=== PATIENT | male | born 1965 | race Caucasian/White ===

== ENCOUNTER → 2018-01-20 | Outpatient (CLI) | payer BC ==
[~2018-01-20] MED LIST: FLOMAX0.4 MG PO; LIPITOR20 MG PO; PERCOCET 5/31 TABLET PO
== END | disposition home or self-care (01) ==
LOC: CDC 12:51
DX: Z01.810 Encounter for preprocedural cardiovascular examination (principal); K40.90 Unilateral inguinal hernia, without obstruction or gangrene, not specified as recurrent; R94.31 Abnormal electrocardiogram [ECG] [EKG]
CPT/HCPCS: 93000

== ENCOUNTER 2018-01-26 07:46 | Day surgery (SDC) | payer BC ==
[~2018-01-26] VITALS: Ht 175.3 cm; Wt 93.9 kg
[2018-01-26 08:58] VITALS: BP 151/92
[2018-01-26] MEDS ORDERED: NORCO 5/3251 TABLET PO (11:00)
[2018-01-26 13:00] VITALS: BP 149/94
[2018-01-26 14:11] VITALS: BP 144/100
== END 2018-01-26 14:30 | disposition home or self-care (01) ==
LOC: SDC
DX: K40.90 Unilateral inguinal hernia, without obstruction or gangrene, not specified as recurrent (principal); D17.6 Benign lipomatous neoplasm of spermatic cord; E66.3 Overweight; Z68.29 Body mass index [BMI] 29.0-29.9, adult; E78.5 Hyperlipidemia, unspecified; G47.33 Obstructive sleep apnea (adult) (pediatric); M19.90 Unspecified osteoarthritis, unspecified site; Z80.0 Family history of malignant neoplasm of digestive organs; Z88.5 Allergy status to narcotic agent
CPT/HCPCS: C1781; J0131; J0690; J1170; J2250; J2710; J7643; Q0175; S0020